=== PATIENT | male | born 1985 | race Caucasian/White ===

== ENCOUNTER 2024-09-04 11:58 | Emergency (ER) | payer BC, SELFPAY ==
[2024-09-04 12:09] VITALS: BP 121/73; PULSE 90; TEMP 36.8; O2SAT 97; BMI 26.5
[2024-09-04 12:30] VITALS: PULSE 70
[2024-09-04 12:38] LABS: Basophils Percent Auto 0.5 % (0.2-2.0); Eosinophils Absolute Auto 0.1 10^3/uL (0.0-0.7); Eosinophils Percent Auto 1.1 % (0.9-7.0); Hematocrit 39.2 % (42.0-54.0); Hemoglobin 14.1 g/dL (14.0-18.0); Lymphocytes Absolute Auto 0.8 10^3/uL (1.2-3.8); Lymphocytes Percent Auto 18.8 % (20.5-60.0); Mean Corpuscular Hemoglobin 31.3 pg (25.9-34.0); Mean Corpuscular Volume 86.9 fL (80.0-94.0); Mean Platelet Volume 10.4 fL (9.5-13.5); Monocytes Absolute Auto 0.3 10^3/uL (0.3-0.8); Monocytes Percent Auto 6.6 % (1.7-12.0); Neutrophils Absolute Auto 3.2 10^3/uL (1.4-6.5); Platelet Count 196 10^3/uL (150-450); Red Blood Count 4.51 10^6/uL (4.70-6.10); Red Cell Distribution Width 12.3 % (11.0-15.0); White Blood Count 4.4 10^3/uL (4.0-11.0)
[2024-09-04 12:55] LABS: Anion Gap 10.5; Carbon Dioxide 32.3 mmol/L (21.0-32.0); Chloride 108 mmol/L (98-107); Glucose 125 mg/dL (74-106); Potassium 3.8 mmol/L (3.5-5.1); Salicylate <2.8 mg/dL (<=19.9); Sodium 147 mmol/L (136-145)
[2024-09-04 12:56] LABS: Acetaminophen <2.0 ug/mL (10.0-30.0); Alanine Aminotransferase 28 U/L (16-63); Albumin Globulin Ratio 1.4; Albumin Level 3.9 g/dL (3.4-5.0); Alkaline Phosphatase 71 U/L (46-116); Aspartate Amino Transferase 11 U/L (15-37); BUN Creatinine Ratio 8.2; Bilirubin Total 0.4 mg/dL (0.2-1.0); Calcium 8.9 mg/dL (8.5-10.1); Estimated GFR (African America >60 (>=60 mL/min/1.73m^2); Estimated GFR (Non-African Ame >60 (>=60 mL/min/1.73m^2); Ethanol <3 mg/dL; Globulin 2.8 g/dL; Total Protein 6.7 g/dL (6.4-8.2)
[2024-09-04 14:31] LABS: Bilirubin Urine NEGATIVE (NEGATIVE); Blood Urine NEGATIVE (NEGATIVE); Clarity Urine CLEAR (CLEAR); Color Urine LT. YELLOW (YELLOW); Glucose Urine UA NEGATIVE (NEGATIVE); Ketones Urine NEGATIVE (NEGATIVE); Leukocyte Esterase Urine NEGATIVE (NEGATIVE); Nitrite Urine NEGATIVE (NEGATIVE); Protein Urine NEGATIVE (NEG/TRACE); Specific Gravity Urine 1.015 (1.005-1.025); Urobilinogen Urine 0.2 EU/dL (0.2-1.0); pH Urine 8.5 (5.0-9.0)
[2024-09-04 14:35] LABS: Urine Microscopic Indicated NO
--- NOTE | 2024-09-04 14:42 | ECG_ITS ---
[facility] Test Date: 2024-09-04 Pat Name: JAIMN SHELTON Department: Room: - Gender: Male Cook Relief: : 1985 Requested By: [id number] Order Number: [id number] Reading MD: YULISA THOMAS M.D. Measurements Intervals [place] Rate: 70 P: 65 WV: 128 QRS: 94 QRSD: 84 T: 67 QT: 374 QTc: 394 Interpretive Statements 1100 Sinus rhythm 1102 Sinus arrhythmia 7102 Moderate right axis deviation 9110 normal ECG Compared to ECG 03/25/2022 10:58:48 No significant changes Electronically Signed On 09-04-2024 20:28:42 EDT by YULISA THOMAS M.D.
[2024-09-04 14:45] LABS: Amphetamine Screen Urine NEGATIVE (NEGATIVE); Barbiturates Screen Urine NEGATIVE (NEGATIVE); Benzodiazepines Screen Urine NEGATIVE (NEGATIVE); Buprenorphine Screen Urine NEGATIVE (NEGATIVE); Cannabinoid Screen Urine POSITIVE (NEGATIVE); Cocaine Screen Urine NEGATIVE (NEGATIVE); Methadone Screen Urine NEGATIVE (NEGATIVE); Methamphetamines Screen Urine NEGATIVE (NEGATIVE); Opiate Screen Urine NEGATIVE (NEGATIVE); Oxycodone Screen Urine NEGATIVE (NEGATIVE); Phencyclidine Screen Urine NEGATIVE (NEGATIVE); Tricyclic Antidepressant Urine NEGATIVE (NEGATIVE)
[2024-09-04 16:05] VITALS: BP 117/80; PULSE 68; O2SAT 100
--- NOTE | 2024-09-04 17:11 | ED_ITS ---
HPI HPI - General Adult General Chief complaint: Psychiatric Symptoms Stated complaint: OTHER Time Seen by Provider: 09/04/24 12:03 Source: patient Mode of arrival: ambulance Limitations: no limitations History of Present Illness HPI narrative: This 39-year-old male presents to the ED brought by EMS with police escort for evaluation of suicidal ideation. Patient states that he is currently in the process of going through a divorce. He texted his that was pointless to live and he wanted to kill himself. She contacted the authorities. 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 He has not acted on this desire to end his life. Patient has a history of bipolar disorder and stopped taking his psychotropics at least a week ago. Related Data Home Medications ?Medication ?Instructions ?Recorded ?Confirmed cariprazine 3 mg capsule (Vraylar) 3 mg PO .every other day 09/04/24 09/04/24 lamotrigine 100 mg tablet 100 mg PO QDAY 09/04/24 09/04/24 linaclotide 72 mcg capsule 72 mcg PO DAILY 09/04/24 09/04/24 (Linzess) sertraline 50 mg tablet 50 mg PO Q24H 09/04/24 09/04/24 tadalafil 5 mg tablet 5 mg PO PRN 09/04/24 09/04/24 Allergies Allergy/AdvReac Type Severity Reaction Status Date / Time codeine AdvReac Severe Unknown Verified 09/04/24 12:09 Penicillins AdvReac Severe Unknown Verified 09/04/24 12:09 Opioid HPI Opioid Management Most Recent Opioid Data: Ur Phencyclidine Scrn Negative (NEGATIVE) 09/04/24 14:10 08/22 09/15 Review of Systems ROS Status of ROS 10 or more systems reviewed and unremark able except as noted in history and below [facility] Social History Little interest or pleasure in doing things: nearly every day Feeling down, depressed, or hopeless: nearly every day Exam Narrative Exam Narrative: Alert and cooperative. Vital signs are stable. Affect is somewhat flat. HEENT exam is normal to inspection. Neck is supple. Lung sounds are clear to auscultation bilaterally with good air entry. Heart has regular rate and rhythm. Abdomen soft and benign. Extremities warm and dry. Constitutional Vital Signs, click to edit/add: Last Vital Signs Temp 98.2 F 09/04/24 12:09 Pulse 68 09/04/24 16:05 Resp 16 09/04/24 16:05 BP 117/80 09/04/24 16:05 Pulse Ox 100 09/04/24 16:05 O2 Del Method Room Air 09/04/24 12:09 Course Vital Signs Vital signs: Vital Signs Temperature 98.2 F 09/04/24 12:09 Pulse Rate 90 09/04/24 12:09 Respiratory Rate 18 09/04/24 12:09 Blood Pressure 121/73 09/04/24 12:09 Pulse Oximetry 97 09/04/24 12:09 Oxygen Delivery Method Room Air 09/04/24 12:09 Temperature 98.2 F 09/04/24 12:09 Pulse Rate 68 09/04/24 16:05 Respiratory Rate 16 09/04/24 16:05 Blood Pressure 117/80 09/04/24 16:05 Pulse Oximetry 100 09/04/24 16:05 Oxygen Delivery Method Room Air 09/04/24 12:09 Medical Decision Making MDM Narrative Medical decision making narrative: Twelve-lead EKG is interpreted by me and shows sinus rhythm with right axis deviation and no acute ischemic change. Patient's baseline labs unremarkable. Mental health consult is obtained and patient is being admitted to the psych unit at [facility]. He is stable for transfer. Lab Data Labs: Lab Results 09/04/24 09/04/24 Range/Units 12:30 14:10 WBC 4.4 (4.0-11.0) 10^3/uL RBC 4.51 L (4.70-6.10) 10^6/uL Hgb 14.1 (14.0-18.0) g/dL Hct 39.2 L (42.0-54.0) % MCV 86.9 (80.0-94.0) fL MCH 31.3 (25.9-34.0) pg MCHC 36.0 H (29.9-35.2) g/dL RDW 12.3 (11.0-15.0) % Plt Count 196 (150-450) 10^3/uL MPV 10.4 (9.5-13.5) fL Neut % (Auto) 73.0 (43.0-75.0) % Lymph % (Auto) 18.8 L (20.5-60.0) % [place] % (Auto) 6.6 (1.7-12.0) % Eos % (Auto) 1.1 (0.9-7.0) % Baso % (Auto) 0.5 (0.2-2.0) % Neut # (Auto) 3.2 (1.4-6.5) 10^3/uL Lymph # (Auto) 0.8 L (1.2-3.8) 10^3/uL [place] # (Auto) 0.3 (0.3-0.8) 10^3/uL Eos # (Auto) 0.1 (0.0-0.7) 10^3/uL Baso # (Auto) 0.0 (0.0-0.1) 10^3/uL Abs Immat Gran (auto) 0.00 (0.00-0.03) 10^3/uL Imm/Tot Granulo (auto) 0.0 (0.0-0.5) % Sodium 147 H (136-145) mmol/L Potassium 3.8 (3.5-5.1) mmol/L Chloride 108 H (98-107) mmol/L Carbon Dioxide 32.3 H (21.0-32.0) mmol/L Anion Gap 10.5 BUN 9.0 (7.0-18.0) mg/dL Creatinine 1.10 (0.70-1.30) mg/dL Est GFR ( Amer) >60 (>=60 mL/min/1.73m^2) Est GFR (Non-Af Amer) >60 (>=60 mL/min/1.73m^2) BUN/Creatinine Ratio 8.2 Glucose 125 H (74-106) mg/dL Calcium 8.9 (8.5-10.1) mg/dL Total Bilirubin 0.4 (0.2-1.0) mg/dL AST 11 L (15-37) U/L ALT 28 (16-63) U/L Alkaline Phosphatase 71 (46-116) U/L Total Protein 6.7 (6.4-8.2) g/dL Albumin 3.9 (3.4-5.0) g/dL Globulin 2.8 g/dL Albumin/Globulin Ratio 1.4 Urine Color Lt. yellow (YELLOW) Urine Clarity Clear (CLEAR) Urine pH 8.5 (5.0-9.0) Ur Specific [place] 1.015 (1.005-1.025) Urine Protein Negative (NEG/TRACE) mg/dL Urine Glucose (UA) Negative (NEGATIVE) mg/dL Urine Ketones Negative (NEGATIVE) mg/dL Urine Occult Blood Negative (NEGATIVE) Urine Nitrite Negative (NEGATIVE) Urine Bilirubin Negative (NEGATIVE) Urine Urobilinogen 0.2 (0.2-1.0) EU/dL Ur Leukocyte Esterase Negative (NEGATIVE) Salicylates <2.8 (<=19.9) mg/dL Urine Opiates Screen Negative (NEGATIVE) Ur Buprenorphine Scrn Negative (NEGATIVE) Ur Oxycodone Screen Negative (NEGATIVE) Urine Methadone Screen Negative (NEGATIVE) Acetaminophen <2.0 L (10.0-30.0) ug/mL Ur Barbiturates Screen Negative (NEGATIVE) U Tricyclic Antidepress Negative (NEGATIVE) Ur Phencyclidine Scrn Negative (NEGATIVE) Ur Amphetamines Screen Negative (NEGATIVE) U Methamphetamines Scrn Negative (NEGATIVE) U Benzodiazepines Scrn Negative (NEGATIVE) Urine Cocaine Screen Negative (NEGATIVE) U Cannabinoids Screen Positive A (NEGATIVE) Ethanol Quant <3 mg/dL Discharge Plan Discharge Chief Complaint: Psychiatric Symptoms Clinical Impression: Suicidal ideation Patient Disposition: [facility] Time of Disposition Decision: 17:11 Discharge location: [facility] Condition: Good Mode of Transportation: EMS
== END 2024-09-04 17:21 ==
PROVIDERS: Emergency Provider Emergency Medicine
DX: R45.851 Suicidal ideations (principal); F31.9 Bipolar disorder, unspecified; T43.96XA Underdosing of unspecified psychotropic drug, initial encounter; Z91.128 Patient's intentional underdosing of medication regimen for other reason
CPT/HCPCS: 36415; 80053; 80179; 80307; 80320; 80329; 81003; 85025; 93005; 99285